=== PATIENT | male | born 1960 | race American Indian/Alaskan Native ===

== ENCOUNTER 2021-09-11 15:17 | Emergency (ER) | payer MEDICARE ==
[2021-09-11 15:30] VITALS: BP 134/82
--- NOTE | 2021-09-11 16:15 | Emergency Department Report ---
ED General Adult HPI - General Chief complaint: Rectal Pain Stated complaint: RECTAL PAIN Time Seen by Provider: 09/11/21 16:07 Source: patient Mode of arrival: Ambulatory Limitations: No Limitations - History of Present Illness Initial comments: Patient is a 61-year-old male presents emergency room complaints of rectal pain that began approximately a week ago. He reports that he has a history of hemorrhoids and thought it was his hemorrhoids bothering him. He states he applied some [id number] ointment but it has not been improving his pain. He states that whenever he strains have a bowel movement he has some bright red blood present. He denies any heavy bleeding or passing clots. He denies any abdominal pain, fever, chills, vomiting, diarrhea. Patient reports he has a past medical history of CKD and last received dialysis yesterday, hypertension, CHF. Patient reports that he had a colonoscopy at [facility] and was advised that he has AVMs. Allergy to lisinopril - Related Data Previous Rx's Medication Instructions Recorded Last Taken Type ISOSORBIDE MONOnitrate [Imdur ER] 60 mg PO QDAY #30 tablet 04/21/15 Unknown Rx NIFEdipine XL [Procardia Xl] 60 mg PO Q12HR #60 tablet 04/21/15 Unknown Rx carvediloL [Coreg] 25 mg PO Q12HR #60 tablet 04/21/15 Unknown Rx hydrALAZINE [Apresoline TAB] 25 mg PO Q8HR #90 tablet 04/21/15 Unknown Rx predniSONE [Deltasone] 5 mg PO QDAY #3 tab 04/21/15 Unknown Rx Docusate Sodium [Colace] 100 mg PO BID #60 capsule 09/11/21 Unknown Rx Hydrocortisone [Anucort-HC SUPPOS] 25 mg RC BID PRN #10 09/11/21 Unknown Rx Lidocaine [Lidocaine GEL] 1 applicatio TP BID PRN #30 g 09/11/21 Unknown Rx Allergies Allergy/AdvReac Type Severity Reaction Status Date / Time lisinopril Allergy Severe Swelling Verified 09/11/21 15:27 ED Review of Systems ROS: Stated complaint: RECTAL PAIN Other details as noted in HPI Comment: All other systems reviewed and negative ED Past Medical Hx - Past Medical History Hx Hypertension: Yes Hx Renal Disease: Yes Additional medical history: chronic back pain - Surgical History Additional Surgical History: FISTULA - Social History Smoking Status: Former Smoker - Medications Home Medications: Home Medications Medication Instructions Recorded Confirmed Last Taken Type ISOSORBIDE MONOnitrate [Imdur ER] 60 mg PO QDAY #30 tablet 04/21/15 Unknown Rx NIFEdipine XL [Procardia Xl] 60 mg PO Q12HR #60 tablet 04/21/15 Unknown Rx carvediloL [Coreg] 25 mg PO Q12HR #60 tablet 04/21/15 Unknown Rx hydrALAZINE [Apresoline TAB] 25 mg PO Q8HR #90 tablet 04/21/15 Unknown Rx predniSONE [Deltasone] 5 mg PO QDAY #3 tab 04/21/15 Unknown Rx Docusate Sodium [Colace] 100 mg PO BID #60 capsule 09/11/21 Unknown Rx Hydrocortisone [Anucort-HC SUPPOS] 25 mg RC BID PRN #10 09/11/21 Unknown Rx Lidocaine [Lidocaine GEL] 1 applicatio TP BID PRN #30 g 09/11/21 Unknown Rx ED Physical Exam - General Limitations: No Limitations General appearance: alert, in no apparent distress - Head Head exam: Present: atraumatic, normocephalic - Eye Eye exam: Present: normal appearance - ENT ENT exam: Present: mucous membranes moist - Rectal Rectal exam: Present: other (principal java software engineer: AYESHA arreguin, there is one small non t hrombosed external hemorrhoid at the 12 oclock position, no gross blood, rectal vault is empty, hemoccult performed by me and is positive, pt has ttp in the rectum, no obvious induration or fluctuance) - Neurological Exam Neurological exam: Present: alert, oriented X3 - Psychiatric Psychiatric exam: Present: normal affect, normal mood - Skin Skin exam: Present: warm, dry, intact ED Course Vital Signs 09/11/21 15:29 Temperature 98.4 F Pulse Rate 94 H Respiratory 20 Rate Blood Pressure 134/82 O2 Sat by Pulse 99 Oximetry ED Medical Decision Making - Lab Data Result diagrams: 09/11/21 16:11 09/11/21 16:11 Lab Results 09/11/21 09/11/21 09/11/21 Range/Units 16:11 16:11 16:11 WBC 7.1 (4.5-11.0) K/mm3 RBC 3.62 L (3.65-5.03) M/mm3 Hgb 11.0 L (11.8-15.2) gm/dl Hct 34.3 L (35.5-45.6) % MCV 95 H (84-94) fl MCH 30 (28-32) pg MCHC 32 (32-34) % RDW 18.3 H (13.2-15.2) % Plt Count 249 (140-440) K/mm3 Lymph % (Auto) 10.0 L (13.4-35.0) % [place] % (Auto) 9.5 H (0.0-7.3) % Eos % (Auto) 2.3 (0.0-4.3) % Baso % (Auto) 0.6 (0.0-1.8) % Lymph # (Auto) 0.7 L (1.2-5.4) K/mm3 [place] # (Auto) 0.7 (0.0-0.8) K/mm3 Eos # (Auto) 0.2 (0.0-0.4) K/mm3 Baso # (Auto) 0.0 (0.0-0.1) K/mm3 Seg Neutrophils % 77.6 H (40.0-70.0) % Seg Neutrophils # 5.5 (1.8-7.7) K/mm3 PT 15.2 H (12.2-14.9) Sec. INR 1.08 (0.87-1.13) APTT 34.0 (24.2-36.6) Sec. Sodium 146 H (137-145) mmol/L Potassium 3.9 (3.6-5.0) mmol/L Chloride 104.1 (98-107) mmol/L Carbon Dioxide 27 (22-30) mmol/L Anion Gap 19 mmol/L BUN 20 (9-20) mg/dL Creatinine 7.9 H (0.8-1.3) mg/dL Estimated GFR 8 ml/min BUN/Creatinine Ratio 3 % Glucose 104 H (75-100) mg/dL Calcium 10.1 (8.4-10.2) mg/dL Total Bilirubin 0.90 (0.1-1.2) mg/dL AST 10 (5-40) units/L ALT 9 (7-56) units/L Alkaline Phosphatase 107 (35-129) units/L Total Protein 7.5 (6.3-8.2) g/dL Albumin 4.0 (3.9-5) g/dL Albumin/Globulin Ratio 1.1 % - Radiology Data Radiology results: report reviewed Ordering Physician: SHO BELL Date of Service: 09/11/21 Procedure(s): CT abdomen pelvis wo con Accession Number(s): [id number] cc: SHO BELL CT ABDOMEN AND PELVIS WITHOUT CONTRAST HISTORY: rectal pain, PO contrast only COMPARISON: None TECHNIQUE: Routine abdominal and pelvic CT exam performed Without intravenous contrast. Oral contrast was administered. Lack of intravenous contrast limits evaluation of the vascular and solid organs.. All CT scans at this location are performed using CT dose reduction for ALARA by means of automated exposure control. FINDINGS: CT ABDOMEN: Lung Bases: Moderate emphysema seen in the lung bases. Liver: No significant abnormality. Biliary: No significant abnormality. Spleen: No significant abnormality. Unenlarged. Pancreas: No significant abnormality. Adrenals: No significant abnormality. Kidneys: Several bilateral renal cysts, including a peripherally calcified cyst in the right kidney. Multiple small bilateral intrarenal stones. Lymphatics: No lymphadenopathy. Vasculature: Atherosclerotic but nonaneurysmal abdominal aorta. Bowel/Peritoneum: There is a small volume of ascites in the abdomen. CT PELVIC: : No significant abnormality. Lymphatics: No lymphadenopathy. Osseous Structures: No aggressive appearing osseous lesions. Additional Findings: None IMPRESSION: 1. No definite acute findings. 2. Small volume of abdominal ascites, of uncertain etiology. The liver appears grossly normal by imaging. 3. Small bilateral nonobstructing intrarenal stones. Signer Name: Adelfo Christian MD Signed: 09/11/2021 5:48 PM Workstation Name: [id number] Transcribed By: ELAINE Dictated By: Adelfo Christian MD Electronically Authenticated By: Adelfo Christian MD Signed Date/Time: 09/11/211747 DD/ 46 TD/TT: - Medical Decision Making Patient is a 61-year-old male presents emergency room complaints of rectal pain that began approximately a week ago. He reports that he has a history of hemorrhoids and thought it was his hemorrhoids bothering him. He states he applied some [id number] ointment but it has not been improving his pain. He states that whenever he strains have a bowel movement he has some bright red blood present. He denies any heavy bleeding or passing clots. He denies any abdominal pain, fever, chills, vomiting, diarrhea. Patient reports he has a past medical history of CKD and last received dialysis yesterday, hypertension, CHF. Patient reports that he had a colonoscopy at [facility] and was advised that he has AVMs. Allergy to lisinopril. Vitals are stable. On exam:principal java software engineer: AYESHA arreguin, there is one small non thrombosed external hemorrhoid at the 12 oclock position, no gross blood, rectal vault is empty, hemoccult performed by me and is positive, pt has ttp in the rectum, no obvious induration or fluctuance. Labs with stable anemia and stable CKD. CT abdomen pelvis with oral contrast 1. No definite acute findings. 2. Small volume of abdominal ascites, of uncertain etiology. The liver appears grossly normal by imaging. 3. Small bilateral nonobstructing intrarenal stones. Patient reports he is currently being worked up for the abdominal ascites and had ultrasound performed but states he is still in the process of being worked up. Discussed all findings with patient. Patient given prescription for medication. Discussed the importance of primary care and GI follow-up. Advised patient please use medication as prescribed. Follow-up with your primary care doctor. Follow-up with your GI doctor. Return to emergency room for any new or worsening symptoms. Critical care attestation.: If time is entered above; I have spent that time in minutes in the direct care of this critically ill patient, excluding procedure time. ED Disposition Clinical Impression: Rectal pain, Rectal bleeding Hemorrhoids Qualifiers: Hemorrhoid type: unspecified Qualified Code(s): K64.9 - Unspecified hemorrhoids Abdominal ascites Qualifiers: Ascites type: other type Qualified Code(s): R18.8 - Other ascites Disposition: 01 HOME / SELF CARE / HOMELESS Is pt being admited?: No Does the pt Need Aspirin: No Condition: Stable Instructions: Gastrointestinal Bleeding, Hemorrhoids, [id number], Ascites Additional Instructions: please use medication as prescribed. Follow-up with your primary care doctor. Follow-up with your GI doctor. Return to emergency room for any new or worsening symptoms. Prescriptions: Hydrocortisone [Anucort-HC SUPPOS] 25 mg RC BID PRN #10 PRN Reason: hemorrhoids Docusate Sodium [Colace] 100 mg PO BID #60 capsule Lidocaine [Lidocaine GEL] 1 applicatio TP BID PRN #30 g PRN Reason: pain Referrals: JALEESA YIN MD [Primary Care Provider] - 3-5 Days your, GI doctor [Other] - 3-5 Days Forms: Work/School Release Form(ED) Time of Disposition: 18:24 Print Language: LAO
[2021-09-11 16:48] LABS: Basophils % (Auto) 0.6 % (0.0-1.8); Eosinophils # (Auto) 0.2 K/mm3 (0.0-0.4); Eosinophils % (Auto) 2.3 % (0.0-4.3); Hematocrit 34.3 % (35.5-45.6); Lymphocytes # (Auto) 0.7 K/mm3 (1.2-5.4); Mean Corpuscular HGB Conc 32 % (32-34); Mean Corpuscular Volume 95 fl (84-94); Monocytes # (Auto) 0.7 K/mm3 (0.0-0.8); Monocytes % (Auto) 9.5 % (0.0-7.3); Platelet Count 249 K/mm3 (140-440); Red Blood Count 3.62 M/mm3 (3.65-5.03); Red Cell Distribution Width 18.3 % (13.2-15.2)
[2021-09-11 16:59] LABS: INR 1.08 (0.87-1.13)
[2021-09-11 17:21] LABS: Calcium 10.1 mg/dL (8.4-10.2)
--- NOTE | 2021-09-11 17:53 | Cat Scan Report ---
CT ABDOMEN AND PELVIS WITHOUT CONTRAST HISTORY: rectal pain, PO contrast only COMPARISON: None TECHNIQUE: Routine abdominal and pelvic CT exam performed Without intravenous contrast. Oral contrast was administered. Lack of intravenous contrast limits evaluation of the vascular and solid organs.. All CT scans at this location are performed using CT dose reduction for ALARA by means of automated exposure control. FINDINGS: CT ABDOMEN: Lung Bases: Moderate emphysema seen in the lung bases. Liver: No significant abnormality. Biliary: No significant abnormality. Spleen: No significant abnormality. Unenlarged. Pancreas: No significant abnormality. Adrenals: No significant abnormality. Kidneys: Several bilateral renal cysts, including a peripherally calcified cyst in the right kidney. Multiple small bilateral intrarenal stones. Lymphatics: No lymphadenopathy. Vasculature: Atherosclerotic but nonaneurysmal abdominal aorta. Bowel/Peritoneum: There is a small volume of ascites in the abdomen. CT PELVIC: : No significant abnormality. Lymphatics: No lymphadenopathy. Osseous Structures: No aggressive appearing osseous lesions. Additional Findings: None IMPRESSION: 1. No definite acute findings. 2. Small volume of abdominal ascites, of uncertain etiology. The liver appears grossly normal by imag ing. 3. Small bilateral nonobstructing intrarenal stones. Signer Name: Adelfo Christian MD Signed: 09/11/2021 5:48 PM Workstation Name: [id number]
== END 2021-09-11 18:48 | disposition home or self-care (01) ==
LOC: ED 15:17
DX: K64.9 Unspecified hemorrhoids (principal); K62.5 Hemorrhage of anus and rectum; R18.8 Other ascites; I10 Essential (primary) hypertension; N18.6 End stage renal disease; Z99.2 Dependence on renal dialysis; Z98.890 Other specified postprocedural states; Z87.891 Personal history of nicotine dependence; Z91.09 Other allergy status, other than to drugs and biological substances
CPT/HCPCS: 36415; 74176; 80053; 85025; 85610; 85730; 99284